=== PATIENT | female | born 1955 | race African-American/Black ===

== ENCOUNTER 2018-04-16 12:50 | Emergency (ER) | payer MEDICARE, MEDICAID ==
[~2018-04-16] VITALS: Ht 149.9 cm; Wt 79.0 kg
[2018-04-16] MEDS ORDERED: KETOROLAC 60MG/2ML VIAL IM ONE (14:45)
[2018-04-16] MEDS ORDERED: CYCLOBENZAPRINE 10MG TABLET PO ONE (14:45)
[2018-04-16] MEDS ORDERED: HYDROCODONE/ACETAMINOPHEN 5/325MG TABLET PO ONE (16:45)
[2018-04-16] MEDS ORDERED: TRAMADOL 50MG TABLET PO ONE (20:00)
[2018-04-16 20:24] VITALS: BP 162/70
== END 2018-04-16 20:26 | disposition home or self-care (01) ==
LOC: ER 14:48
DX: M48.02 Spinal stenosis, cervical region (principal); M47.896 Other spondylosis, lumbar region; M47.892 Other spondylosis, cervical region; G89.29 Other chronic pain; J45.909 Unspecified asthma, uncomplicated; F17.200 Nicotine dependence, unspecified, uncomplicated; Z98.890 Other specified postprocedural states; W01.0XXA Fall on same level from slipping, tripping and stumbling without subsequent striking against object, initial encounter; Y93.89 Activity, other specified; Y92.89 Other specified places as the place of occurrence of the external cause; Y99.8 Other external cause status
CPT/HCPCS: 72125; 72131; 96372; 99284; J1885

== ENCOUNTER 2018-12-15 01:46 | Inpatient (IN) | payer MEDICARE, OTHER ==
[2018-12-15] VITALS (12 sets, daily range): BP systolic 160–187; BP diastolic 77–135
[~2018-12-15] VITALS: Ht 167.6 cm; Wt 95.5 kg
[2018-12-15] MEDS ORDERED: METHYLPREDNISOLONE SOD SUCC 125 MG/2 ML VIAL IV STA (02:12)
[2018-12-15] MEDS ORDERED: IPRATROPIUM BROMIDE (0.02%) 0.5MG/2.5ML NEB HHN STA (02:12)
[2018-12-15] MEDS ORDERED: ONDANSETRON HCL 4MG/2ML INJ IV STA (02:12)
[2018-12-15] MEDS ORDERED: LORAZEPAM 2MG/ML CPJ IV ONE (02:15)
[2018-12-15] MEDS ORDERED: MAGNESIUM 2 G PREMIX 50 ML IV ONE (02:15)
[2018-12-15] MEDS: ALBUTEROL (0.083%) 2.5MG/3ML NEB HHN SCH ×3 (02:25→03:55)
[2018-12-15 02:45] LABS: BASOPHILS % 0.7 % (0.0-2.0); HEMATOCRIT. 38.5 % (36.0-48.0); HEMOGLOBIN. 13.1 g/dL (12.0-16.0); LYMPHOCYTES % 41.7 % (20.0-50.0); MEAN CORPUSCULAR HEMOGLOBIN 29.7 pg (28.0-32.0); MEAN CORPUSCULAR VOLUME 87.6 fL (81.0-99.0); MEAN PLATELET VOLUME 7.6 fl (7.4-10.4); MONOCYTES % 4.8 % (2.0-8.0); NEUTROPHILS % 51.8 % (40.0-76.0); PLATELET 239 x1000/uL (130-400); RED BLOOD CELL COUNT 4.39 mill/uL (4.2-5.4); RED CELL DISTRIBUTION WIDTH 15.2 % (11.6-14.6)
[2018-12-15 02:51] LABS: CHLORIDE 107 mEq/L (98-107)
[2018-12-15 03:50] LABS: BG BASE EXCESS -1.3 mmol/L (-2.0-2.0); BG BILEVEL POS AIRWAY PRESSURE 15/5; BG DEOXYHEMOGLOBIN 1.5 % (0.0-5.0); BG FRACTION INSPIRED OXYGEN 50; BG HCO3 ACT 23.9 mmol/L (22.0-26.0); BG METHEMOGLOBIN 0.3 % (0.0-1.5); BG OXYGEN SATURATION 98.5 % (92.0-98.5); BG OXYHEMOGLOBIN 97.2 % (94.0-97.0); BG PH 7.373 (7.350-7.450); BG PO2 139.9 mmHg (75.0-100.0); BG SAMPLE SITE RIGHT RADIAL; BG TOTAL HEMOGLOBIN 12.8 g/dL (12.0-18.0); BG VENT MODE MASK - BIPAP
[2018-12-15] MEDS ORDERED: KCL 20MEQ/100ML PREMIX 100 ML IV SCH (05:00)
[2018-12-15] MEDS ORDERED: IPRATROPIUM/ALBUTEROL 0.5-3(2.5)MG/3ML NEB HHN PRN (07:00)
[2018-12-15] MEDS ORDERED: HYDR-3280 PO (07:10)
[2018-12-15] MEDS ORDERED: ONDANSETRON HCL 4MG/2ML INJ IV PRN (07:15)
[2018-12-15] MEDS ORDERED: PROMETHAZINE+CODEINE 6.25-10MG/5ML PO PRN (07:30)
[2018-12-15] MEDS: METHYLPREDNISOLONE SOD SUCC 40 MG/ML VIAL IV SCH ×3 (08:17→22:03)
[2018-12-15] MEDS: NICOTINE 14MG PATCH TD SCH (08:17)
[2018-12-15] MEDS: FAMOTIDINE 20MG/2ML VIAL IV SCH ×2 (08:17→21:30)
[2018-12-15] MEDS: GUAIFENESIN/CODEINE 100-10MG/5ML UDC PO PRN ×3 (08:17→22:07)
[2018-12-15] MEDS: ENOXAPARIN 30MG/0.3ML SYR SUBCUT SCH ×2 (08:18→21:30)
[2018-12-15] MEDS: BUDESONIDE 0.5MG/2ML NEB HHN SCH ×2 (08:22→20:27)
[2018-12-15] MEDS: IPRATROPIUM/ALBUTEROL 0.5-3(2.5)MG/3ML NEB HHN SCH ×4 (08:23→20:27)
[2018-12-15] MEDS ORDERED: POTASSIUM CHLORIDE 20MEQ/PACKET PO NR (09:00)
[2018-12-15 09:17] LABS: HEMATOCRIT. 36.3 % (36.0-48.0); HEMOGLOBIN. 12.1 g/dL (12.0-16.0); MEAN CORPUSCULAR HEMOGLOBIN 29.5 pg (28.0-32.0); MEAN CORPUSCULAR VOLUME 88.1 fL (81.0-99.0); PLATELET 245 x1000/uL (130-400); RED BLOOD CELL COUNT 4.12 mill/uL (4.2-5.4); RED CELL DISTRIBUTION WIDTH 15.1 % (11.6-14.6)
[2018-12-15 09:24] LABS: CHLORIDE 108 mEq/L (98-107)
[2018-12-15 09:31] LABS: LDL CHOLESTEROL 118 mg/dL (5-100)
[2018-12-15 09:32] LABS: CREATINE KINASE 119 IU/L (26-192); HDL CHOLESTEROL 74 mg/dL (40-59)
[2018-12-15 09:35] LABS: CREATINE KINASE MB FRACTION 1.4 ng/mL (0.5-3.6)
[2018-12-15] MEDS ORDERED: CLONIDINE 0.1MG TABLET PO NR (10:15)
[2018-12-15 10:42] LABS: PLATELET ESTIMATE NORMAL
[2018-12-15] MEDS: THIAMINE HCL 100MG TABLET PO SCH (13:10)
[2018-12-15] MEDS: AZITHROMYCIN 500 MG TABLET PO SCH (13:11)
[2018-12-15] MEDS: MULTIVITAMINS,THER W-MINERALS TABLET PO SCH (13:11)
[2018-12-15] MEDS: FOLIC ACID 1MG TABLET PO SCH (13:14)
[2018-12-15 15:50] LABS: *AMPHETAMINES SCREEN URINE NEGATIVE (NEGATIVE); *BARBITURATES SCREEN URINE NEGATIVE (NEGATIVE); *BENZODIAZEPINES SCREEN URINE NEGATIVE (NEGATIVE)
[2018-12-15 15:51] LABS: *COCAINE SCREEN URINE NEGATIVE (NEGATIVE); CANNABINOID URINE SCREEN NEGATIVE (NEGATIVE); METHADONE URINE SCREEN NEGATIVE (NEGATIVE); OPIATES URINE SCREEN PRESUMTIVE POSITIVE (NEGATIVE); PHENCYCLIDINE URINE SCREEN NEGATIVE (NEGATIVE)
[2018-12-15] MEDS: HYDRALAZINE 20MG/ML VIAL IV PRN ×2 (15:52→22:03)
[2018-12-15 16:35] LABS: CREATINE KINASE 206 IU/L (26-192)
[2018-12-15 16:36] LABS: CREATINE KINASE MB FRACTION 2.4 ng/mL (0.5-3.6)
[2018-12-15] MEDS: MONTELUKAST SODIUM 10MG TABLET PO SCH (17:57)
[2018-12-15] MEDS: HYDROCODONE/ACETAMINOPHEN 5/325MG TABLET PO PRN (19:48)
[2018-12-15 23:47] LABS: CREATINE KINASE 261 IU/L (26-192)
[2018-12-15 23:48] LABS: CREATINE KINASE MB FRACTION 2.9 ng/mL (0.5-3.6)
[2018-12-16] VITALS (18 sets, daily range): BP systolic 132–179; BP diastolic 65–96
[2018-12-16] MEDS: IPRATROPIUM/ALBUTEROL 0.5-3(2.5)MG/3ML NEB HHN SCH ×5 (00:18→20:22)
[2018-12-16] MEDS: LORAZEPAM 1MG TABLET PO PRN ×2 (00:41→13:01)
[2018-12-16] MEDS: HYDRALAZINE 20MG/ML VIAL IV PRN ×2 (03:43→18:36)
[2018-12-16] MEDS: GUAIFENESIN/CODEINE 100-10MG/5ML UDC PO PRN ×2 (04:10→10:18)
[2018-12-16] MEDS: METHYLPREDNISOLONE SOD SUCC 40 MG/ML VIAL IV SCH ×3 (06:29→22:20)
[2018-12-16] MEDS: BUDESONIDE 0.5MG/2ML NEB HHN SCH ×2 (07:00→20:22)
[2018-12-16] MEDS: MULTIVITAMINS,THER W-MINERALS TABLET PO SCH (09:13)
[2018-12-16] MEDS: FAMOTIDINE 20MG/2ML VIAL IV SCH ×2 (09:13→21:54)
[2018-12-16] MEDS: FOLIC ACID 1MG TABLET PO SCH (09:13)
[2018-12-16] MEDS: ENOXAPARIN 30MG/0.3ML SYR SUBCUT SCH ×2 (09:13→21:55)
[2018-12-16] MEDS: THIAMINE HCL 100MG TABLET PO SCH (09:13)
[2018-12-16] MEDS: NICOTINE 14MG PATCH TD SCH (09:14)
[2018-12-16] MEDS: AZITHROMYCIN 500 MG TABLET PO SCH (13:01)
[2018-12-16] MEDS: HYDROCODONE/ACETAMINOPHEN 5/325MG TABLET PO PRN ×2 (13:02→17:57)
[2018-12-16] MEDS ORDERED: CARISOPRODOL 350 MG TABLET PO PRN (13:15)
[2018-12-16] MEDS: FUROSEMIDE 40MG TABLET PO SCH (14:48)
[2018-12-16 15:57] LABS: BG BASE EXCESS 1.8 mmol/L (-2.0-2.0); BG CARBOXYHEMOGLOBIN 0.3 % (0.5-1.5); BG DEOXYHEMOGLOBIN 6.9 % (0.0-5.0); BG FRACTION INSPIRED OXYGEN 21; BG HCO3 ACT 25.9 mmol/L (22.0-26.0); BG METHEMOGLOBIN 0.5 % (0.0-1.5); BG OXYHEMOGLOBIN 92.3 % (94.0-97.0); BG PCO2 38.9 mmHg (35.0-45.0); BG PH 7.442 (7.350-7.450); BG PO2 65.6 mmHg (75.0-100.0); BG SAMPLE SITE RIGHT BRACHIAL; BG TOTAL HEMOGLOBIN 12.8 g/dL (12.0-18.0); BG VENT MODE ROOM AIR
[2018-12-16] MEDS: MONTELUKAST SODIUM 10MG TABLET PO SCH (16:55)
[2018-12-16] MEDS: DOCUSATE SODIUM 100MG CAPSULE PO SCH (16:55)
[2018-12-16] MEDS: PROMETHAZINE/DEXTROMETHORPHAN 6.25-15MG/5ML BOTTLE 120ML PO PRN (22:23)
[2018-12-17] VITALS (15 sets, daily range): BP systolic 127–179; BP diastolic 72–111
[2018-12-17] MEDS: HYDRALAZINE 20MG/ML VIAL IV PRN ×2 (00:30→06:36)
[2018-12-17] MEDS: IPRATROPIUM/ALBUTEROL 0.5-3(2.5)MG/3ML NEB HHN SCH ×5 (04:19→20:00)
[2018-12-17] MEDS: METHYLPREDNISOLONE SOD SUCC 40 MG/ML VIAL IV SCH ×2 (06:36→17:22)
[2018-12-17] MEDS: HYDROCODONE/ACETAMINOPHEN 10/325MG TABLET PO PRN ×3 (06:48→19:22)
[2018-12-17] MEDS: PROMETHAZINE/DEXTROMETHORPHAN 6.25-15MG/5ML BOTTLE 120ML PO PRN ×3 (06:58→19:22)
[2018-12-17 07:54] LABS: BASOPHILS % 0.3 % (0.0-2.0); HEMATOCRIT. 38.6 % (36.0-48.0); HEMOGLOBIN. 12.8 g/dL (12.0-16.0); LYMPHOCYTES % 10.6 % (20.0-50.0); MEAN CORPUSCULAR VOLUME 87.1 fL (81.0-99.0); MONOCYTES % 3.8 % (2.0-8.0); NEUTROPHILS % 85.3 % (40.0-76.0); PLATELET 280 x1000/uL (130-400); RED BLOOD CELL COUNT 4.43 mill/uL (4.2-5.4); RED CELL DISTRIBUTION WIDTH 15.4 % (11.6-14.6)
[2018-12-17 08:04] LABS: CHLORIDE 110 mEq/L (98-107)
[2018-12-17] MEDS: FOLIC ACID 1MG TABLET PO SCH (08:41)
[2018-12-17] MEDS: FAMOTIDINE 20MG/2ML VIAL IV SCH ×2 (08:41→21:28)
[2018-12-17] MEDS: FUROSEMIDE 40MG TABLET PO SCH (08:41)
[2018-12-17] MEDS: NICOTINE 14MG PATCH TD SCH (08:41)
[2018-12-17] MEDS: MULTIVITAMINS,THER W-MINERALS TABLET PO SCH (08:41)
[2018-12-17] MEDS: DOCUSATE SODIUM 100MG CAPSULE PO SCH ×2 (08:41→17:23)
[2018-12-17] MEDS: THIAMINE HCL 100MG TABLET PO SCH (08:41)
[2018-12-17] MEDS: LORAZEPAM 1MG TABLET PO PRN ×2 (08:41→17:29)
[2018-12-17] MEDS: ENOXAPARIN 30MG/0.3ML SYR SUBCUT SCH ×2 (08:42→21:35)
[2018-12-17] MEDS: AZITHROMYCIN 500 MG TABLET PO SCH (13:05)
[2018-12-17] MEDS ORDERED: METHYLPREDNISOLONE SOD SUCC 40 MG/ML VIAL IV SCH (15:00)
[2018-12-17] MEDS: BUDESONIDE 0.5MG/2ML NEB HHN SCH ×2 (16:10→19:50)
[2018-12-17] MEDS: MONTELUKAST SODIUM 10MG TABLET PO SCH (17:22)
[2018-12-17] MEDS ORDERED: ZOLPIDEM TARTRATE 5MG TABLET PO PRN (21:00)
[2018-12-18] VITALS (9 sets, daily range): BP systolic 130–183; BP diastolic 80–125
[2018-12-18] MEDS: IPRATROPIUM/ALBUTEROL 0.5-3(2.5)MG/3ML NEB HHN SCH ×4 (04:00→12:11)
[2018-12-18] MEDS: PROMETHAZINE/DEXTROMETHORPHAN 6.25-15MG/5ML BOTTLE 120ML PO PRN ×2 (04:09→08:52)
[2018-12-18] MEDS: HYDRALAZINE 20MG/ML VIAL IV PRN (04:14)
[2018-12-18] MEDS: HYDROCODONE/ACETAMINOPHEN 10/325MG TABLET PO PRN ×2 (05:02→11:23)
[2018-12-18 06:59] LABS: BASOPHILS % 0.4 % (0.0-2.0); HEMOGLOBIN. 12.8 g/dL (12.0-16.0); LYMPHOCYTES % 17.9 % (20.0-50.0); MEAN CORPUSCULAR HEMOGLOBIN 29.3 pg (28.0-32.0); NEUTROPHILS % 75.7 % (40.0-76.0); PLATELET 271 x1000/uL (130-400); RED BLOOD CELL COUNT 4.37 mill/uL (4.2-5.4); RED CELL DISTRIBUTION WIDTH 15.2 % (11.6-14.6)
[2018-12-18 07:12] LABS: CHLORIDE 107 mEq/L (98-107)
[2018-12-18] MEDS: BUDESONIDE 0.5MG/2ML NEB HHN SCH (08:50)
[2018-12-18] MEDS: NICOTINE 14MG PATCH TD SCH (08:53)
[2018-12-18] MEDS: ENOXAPARIN 30MG/0.3ML SYR SUBCUT SCH (08:53)
[2018-12-18] MEDS: DOCUSATE SODIUM 100MG CAPSULE PO SCH (08:54)
[2018-12-18] MEDS: METHYLPREDNISOLONE SOD SUCC 40 MG/ML VIAL IV SCH (08:54)
[2018-12-18] MEDS: FAMOTIDINE 20MG/2ML VIAL IV SCH (08:54)
[2018-12-18] MEDS: FOLIC ACID 1MG TABLET PO SCH (08:54)
[2018-12-18] MEDS: MULTIVITAMINS,THER W-MINERALS TABLET PO SCH (08:55)
[2018-12-18] MEDS: THIAMINE HCL 100MG TABLET PO SCH (08:55)
[2018-12-18] MEDS: FUROSEMIDE 40MG TABLET PO SCH (08:55)
[2018-12-18] MEDS: AZITHROMYCIN 500 MG TABLET PO SCH (12:13)
[2018-12-19] MEDS ORDERED: PREDNISONE 20MG TABLET PO SCH (09:00)
== END 2018-12-18 16:50 | disposition home or self-care (01) | DRG 189 ==
LOC: ER 01:46 → 5EST 03:57 → EDBEDREQTM 03:59 → EDBEDREQ 03:59 → EDBEDREQSVC 03:59 → ENRESERV 04:39 → 5EST 12-16 07:44
PROVIDERS: ADMIT Internal Medicine; ATTEND Internal Medicine
PROC: 5A09357 Assistance with Respiratory Ventilation, Less than 24 Consecutive Hours, Continuous Positive Airway Pressure (ICD-10-PCS; principal; 2018-12-15)
DX: J96.01 Acute respiratory failure with hypoxia (principal); J44.1 Chronic obstructive pulmonary disease with (acute) exacerbation; J45.901 Unspecified asthma with (acute) exacerbation; E87.6 Hypokalemia; R73.9 Hyperglycemia, unspecified; F10.20 Alcohol dependence, uncomplicated; I10 Essential (primary) hypertension; E78.5 Hyperlipidemia, unspecified; M16.12 Unilateral primary osteoarthritis, left hip; M54.30 Sciatica, unspecified side; F17.210 Nicotine dependence, cigarettes, uncomplicated; Z95.810 Presence of automatic (implantable) cardiac defibrillator; Z98.891 History of uterine scar from previous surgery
CPT/HCPCS: 36415; 36600; 71045; 80048; 80061; 80305; 82375; 82550; 82553; 82805; 83605; 83735; 83880; 84132; 84443; 84484; 93005; 93970; 94640; 94660; 96365; 96367; 96375; 99291; J0360; J1650; J2060; J2405; J2920; J2930; J3475; J3480; J3490; J7050; J7611; J7620; J7626

== ENCOUNTER 2019-04-05 01:13 | Emergency (ER) | payer MEDICARE, MEDICAID ==
[~2019-04-05] VITALS: Ht 152.4 cm; Wt 82.0 kg
[2019-04-05] MEDS ORDERED: KETOROLAC 60MG/2ML VIAL IM STA (01:28)
[2019-04-05 02:04] LABS: BASOPHILS % 0.8 % (0.0-2.0); EOSINOPHILS % 0.8 % (0.0-5.0); HEMATOCRIT. 38.9 % (36.0-48.0); HEMOGLOBIN. 12.8 g/dL (12.0-16.0); LYMPHOCYTES % 17.9 % (20.0-50.0); MEAN CORPUSCULAR HEMOGLOBIN 28.3 pg (28.0-32.0); MEAN CORPUSCULAR VOLUME 85.7 fL (81.0-99.0); MEAN PLATELET VOLUME 7.8 fl (7.4-10.4); MONOCYTES % 4.8 % (2.0-8.0); NEUTROPHILS % 75.7 % (40.0-76.0); PLATELET 275 x1000/uL (130-400); RED BLOOD CELL COUNT 4.54 mill/uL (4.2-5.4); RED CELL DISTRIBUTION WIDTH 14.4 % (11.6-14.6)
[2019-04-05 02:07] LABS: CHLORIDE 110 mEq/L (98-107)
[2019-04-05] MEDS ORDERED: POTASSIUM CHLORIDE 20MEQ TABLET SR PO SCH (02:45)
[2019-04-05 06:00] VITALS: BP 151/78
== END 2019-04-05 06:59 | disposition home or self-care (01) ==
LOC: ER 01:13
DX: E87.6 Hypokalemia (principal); F41.9 Anxiety disorder, unspecified; R53.1 Weakness; J45.909 Unspecified asthma, uncomplicated; F32.9 Major depressive disorder, single episode, unspecified; I10 Essential (primary) hypertension; Z98.890 Other specified postprocedural states; F17.200 Nicotine dependence, unspecified, uncomplicated
CPT/HCPCS: 36415; 71045; 80053; 83880; 84484; 85025; 93005; 96372; 99284; J1885

== ENCOUNTER 2020-06-30 13:43 | Emergency (ER) | payer MEDICARE, OTHER ==
[~2020-06-30] VITALS: Ht 165.1 cm; Wt 114.0 kg
[~2020-06-30 13:43] MED LIST: ONDANSETRON HCL 4MG/2ML INJ IV NR
[2020-06-30 13:44] VITALS: BP 150/82
[2020-06-30] MEDS ORDERED: LACTATED RINGERS 1,000 ML IV SCH (23:45)
== END 2020-06-30 22:14 | disposition left against medical advice (07) ==
LOC: ER 14:09
DX: R11.2 Nausea with vomiting, unspecified (principal); I10 Essential (primary) hypertension; Z86.59 Personal history of other mental and behavioral disorders; J45.909 Unspecified asthma, uncomplicated
CPT/HCPCS: 99283

== ENCOUNTER 2021-02-05 11:10 | Emergency (ER) | payer OTHER ==
[~2021-02-05] VITALS: Ht 165.1 cm; Wt 127.0 kg
[2021-02-05] MEDS ORDERED: LORAZEPAM 1MG TABLET PO ONE (12:00)
[2021-02-05 12:23] LABS: BASOPHILS % 1.1 % (0.0-2.0); EOSINOPHILS % 0.9 % (0.0-5.0); HEMATOCRIT. 41.4 % (36.0-48.0); HEMOGLOBIN. 13.8 g/dL (12.0-16.0); LYMPHOCYTES % 23.6 % (20.0-50.0); MEAN CORPUSCULAR HEMOGLOBIN 28.7 pg (28.0-32.0); MEAN CORPUSCULAR VOLUME 86.1 fL (81.0-99.0); MEAN PLATELET VOLUME 7.8 fl (7.4-10.4); MONOCYTES % 4.5 % (2.0-8.0); NEUTROPHILS % 69.9 % (40.0-76.0); PLATELET 299 x1000/uL (130-400); RED BLOOD CELL COUNT 4.81 mill/uL (4.2-5.4); RED CELL DISTRIBUTION WIDTH 16.1 % (11.6-14.6)
[2021-02-05 12:27] LABS: CHLORIDE 107 mEq/L (98-107)
[2021-02-05] MEDS ORDERED: ACETAMINOPHEN 325MG TABLET PO ONE (13:15)
[2021-02-05] MEDS ORDERED: KETOROLAC 60MG/2ML VIAL IM ONE (13:30)
[2021-02-05 14:30] VITALS: BP 150/80
== END 2021-02-05 16:00 | disposition home or self-care (01) ==
LOC: ER 11:10
DX: F41.0 Panic disorder [episodic paroxysmal anxiety] (principal); I10 Essential (primary) hypertension; G89.29 Other chronic pain; M54.5 Low back pain; J45.909 Unspecified asthma, uncomplicated; Z63.79 Other stressful life events affecting family and household
CPT/HCPCS: 36415; 80053; 85025; 93005; 96372; 99284; J1885

== ENCOUNTER 2021-05-05 11:02 | Emergency (ER) | payer OTHER, MEDICAID ==
[~2021-05-05] VITALS: Ht 152.4 cm; Wt 80.0 kg
[~2021-05-05 11:02] MED LIST changes: -ONDANSETRON HCL 4MG/2ML INJ IV NR; +OXYC1TAB12 MT
[2021-05-05] MEDS ORDERED: NAPROXEN 375MG TABLET PO ONE (11:45)
[2021-05-05] MEDS ORDERED: NAPR-679 MT (15:46)
[2021-05-05 16:28] VITALS: BP 148/91
== END 2021-05-05 16:33 | disposition home or self-care (01) ==
LOC: ER 11:02
DX: M79.605 Pain in left leg (principal); M25.512 Pain in left shoulder; M25.511 Pain in right shoulder; J45.909 Unspecified asthma, uncomplicated; J44.1 Chronic obstructive pulmonary disease with (acute) exacerbation; Z98.890 Other specified postprocedural states
CPT/HCPCS: 73030; 93005; 93970; 99285

== ENCOUNTER 2021-05-20 22:58 | Inpatient (IN) | payer OTHER, MEDICAID ==
[~2021-05-20] VITALS: Ht 152.4 cm; Wt 85.0 kg
[~2021-05-20 22:58] MED LIST changes: +NAPR-679 MT
[2021-05-20] MEDS ORDERED: ONDANSETRON HCL 4MG/2ML INJ IV STA (23:26)
[2021-05-20] MEDS ORDERED: MORPHINE SULFATE 4 MG/ML CPJ (NOT FOR IM USE) IV STA (23:26)
[2021-05-20] MEDS ORDERED: MAGNESIUM/ALUMINUM HYDROXIDE/SIMETHICONE 30ML UDC PO STA (23:26)
[2021-05-20] MEDS ORDERED: SODIUM CHLORIDE 0.9% 1,000 ML IV ONE (23:30)
[2021-05-21 00:16] LABS: BASOPHILS % 0.8 % (0.0-2.0); EOSINOPHILS % 0.1 % (0.0-5.0); HEMATOCRIT. 38.7 % (36.0-48.0); HEMOGLOBIN. 12.9 g/dL (12.0-16.0); LYMPHOCYTES % 17.1 % (20.0-50.0); MEAN CORPUSCULAR HEMOGLOBIN 28.7 pg (28.0-32.0); MEAN CORPUSCULAR VOLUME 86.1 fL (81.0-99.0); MEAN PLATELET VOLUME 7.5 fl (7.4-10.4); MONOCYTES % 4.5 % (2.0-8.0); NEUTROPHILS % 77.5 % (40.0-76.0); PLATELET 330 x1000/uL (130-400); RED CELL DISTRIBUTION WIDTH 15.3 % (11.6-14.6)
[2021-05-21 00:21] LABS: CHLORIDE 109 mEq/L (98-107)
[2021-05-21 00:28] LABS: PHOSPHORUS 2.5 mg/dL (2.5-4.9)
[2021-05-21] MEDS ORDERED: POTASSIUM CHLORIDE 20MEQ TABLET SR PO ONE (01:30)
[2021-05-21] MEDS ORDERED: MAGNESIUM 2 G PREMIX 50 ML IV ONE (01:30)
[2021-05-21] MEDS ORDERED: KCL 10MEQ/50ML PREMIX 50 ML IV ONE ×2 (01:30)
[2021-05-21] MEDS ORDERED: ONDANSETRON HCL 4MG/2ML INJ IV ONE (03:15)
[2021-05-21] MEDS ORDERED: MORPHINE SULFATE 2 MG/ML CPJ (NOT FOR IM USE) IV ONE (05:15)
[2021-05-21 05:41] LABS: CHLORIDE 115 mEq/L (98-107)
[2021-05-21 08:30] VITALS: BP 96/34
[2021-05-21 08:55] VITALS: BP 96/34
[2021-05-21] MEDS ORDERED: PANTOPRAZOLE SODIUM 40 MG/VIAL IV SCH (10:00)
[2021-05-21] MEDS ORDERED: NALOXONE HCL 0.4MG/ML VIAL IV PRN (10:00)
[2021-05-21] MEDS: ONDANSETRON HCL 4MG/2ML INJ IV PRN ×2 (10:36→16:32)
[2021-05-21] MEDS: MORPHINE SULFATE 2 MG/ML CPJ (NOT FOR IM USE) IV PRN ×3 (10:37→22:34)
[2021-05-21 12:20] VITALS: BP 164/68
[2021-05-21] MEDS: DEXT 5%/0.45% NACL KCL 20MEQ/L 1,000 ML IV SCH ×2 (12:26→23:45)
[2021-05-21] MEDS: PANTOPRAZOLE SODIUM 40 MG/VIAL IV SCH (12:26)
[2021-05-21] MEDS ORDERED: POTASSIUM CHLORIDE INJ 40 MEQ in DEXT 5% WATER 500 ML IV ONE (15:30)
[2021-05-21 16:23] VITALS: BP 132/66
[2021-05-21] MEDS: KCL 20MEQ/100ML PREMIX 100 ML IV SCH ×2 (16:32→18:30)
[2021-05-21] MEDS ORDERED: POTASSIUM CHLORIDE 20MEQ TABLET SR PO NR (18:58)
[2021-05-21 20:00] VITALS: BP 128/70
[2021-05-21 23:40] VITALS: BP 129/70
[2021-05-22] MEDS: ONDANSETRON HCL 4MG/2ML INJ IV PRN ×3 (01:28→17:40)
[2021-05-22 03:39] VITALS: BP 120/68
[2021-05-22] MEDS: MORPHINE SULFATE 2 MG/ML CPJ (NOT FOR IM USE) IV PRN ×3 (04:37→17:40)
[2021-05-22 08:00] VITALS: BP 159/77
[2021-05-22] MEDS: PANTOPRAZOLE SODIUM 40 MG/VIAL IV SCH (09:12)
[2021-05-22] MEDS: APIXABAN 5 MG TABLET PO SCH ×2 (10:56→17:40)
[2021-05-22 12:00] VITALS: BP 129/72
[2021-05-22 13:48] LABS: CHLORIDE 111 mEq/L (98-107)
[2021-05-22 16:00] VITALS: BP 148/85
[2021-05-22 20:00] VITALS: BP 144/75
[2021-05-23] VITALS: BP 151/73
[2021-05-23] MEDS: MORPHINE SULFATE 2 MG/ML CPJ (NOT FOR IM USE) IV PRN ×2 (02:50→10:17)
[2021-05-23] MEDS: ONDANSETRON HCL 4MG/2ML INJ IV PRN (02:50)
[2021-05-23] MEDS: DEXT 5%/0.45% NACL KCL 20MEQ/L 1,000 ML IV SCH ×2 (02:51→16:20)
[2021-05-23 04:00] VITALS: BP 158/77
[2021-05-23 08:00] VITALS: BP 165/75
[2021-05-23] MEDS: APIXABAN 5 MG TABLET PO SCH (09:08)
[2021-05-23] MEDS: PANTOPRAZOLE SODIUM 40 MG/VIAL IV SCH (09:11)
[2021-05-23 11:52] LABS: BASOPHILS % 0.8 % (0.0-2.0); EOSINOPHILS % 2.3 % (0.0-5.0); HEMATOCRIT. 39.2 % (36.0-48.0); HEMOGLOBIN. 12.6 g/dL (12.0-16.0); LYMPHOCYTES % 15.4 % (20.0-50.0); MEAN CORPUSCULAR HEMOGLOBIN 28.5 pg (28.0-32.0); MEAN PLATELET VOLUME 7.8 fl (7.4-10.4); NEUTROPHILS % 76.5 % (40.0-76.0); PLATELET 301 x1000/uL (130-400); RED BLOOD CELL COUNT 4.41 mill/uL (4.2-5.4)
[2021-05-23 12:00] LABS: CHLORIDE 110 mEq/L (98-107)
[2021-05-23 15:28] VITALS: BP_SYST 148; BP_SYST 165; BP_DIAS 75; BP_DIAS 82
[2021-05-23 16:00] VITALS: BP 148/82
== END 2021-05-23 17:22 | disposition home or self-care (01) | DRG 392 ==
LOC: ER 22:58 → 6WST 05-21 06:02 → ENRESERV 05-21 07:48
PROVIDERS: ADMIT Internal Medicine; ATTEND Internal Medicine
DX: K29.20 Alcoholic gastritis without bleeding (principal); F32.A Depression, unspecified; F41.9 Anxiety disorder, unspecified; J44.9 Chronic obstructive pulmonary disease, unspecified; F10.10 Alcohol abuse, uncomplicated; E87.6 Hypokalemia; Y90.9 Presence of alcohol in blood, level not specified; I10 Essential (primary) hypertension; F17.210 Nicotine dependence, cigarettes, uncomplicated; Z86.718 Personal history of other venous thrombosis and embolism; Z79.891 Long term (current) use of opiate analgesic; Z79.899 Other long term (current) drug therapy; Z91.14 Patient's other noncompliance with medication regimen; Z95.810 Presence of automatic (implantable) cardiac defibrillator; Z79.01 Long term (current) use of anticoagulants
CPT/HCPCS: 36415; 74176; 80048; 80053; 80076; 80320; 82150; 82248; 83605; 83735; 84100; 84132; 84484; 85025; 93005; 93306; 99285; C9113; J2270; J2405; J3475; J3480; J7030; G0480

== ENCOUNTER 2021-07-02 10:21 | Emergency (ER) | payer OTHER, MEDICAID ==
[~2021-07-02] VITALS: Ht 162.6 cm; Wt 78.0 kg
[~2021-07-02 10:21] MED LIST changes: -NAPR-679 MT
[2021-07-02 10:35] VITALS: BP 130/80
[2021-07-02] MEDS ORDERED: METH-653 MT (12:24)
[2021-07-02] MEDS ORDERED: IBUP-2028 MT (12:24)
[2021-07-02] MEDS ORDERED: LIDO1ADH82 TOP (12:24)
== END 2021-07-02 13:04 | disposition home or self-care (01) ==
LOC: ER 10:29
DX: M79.605 Pain in left leg (principal); J44.9 Chronic obstructive pulmonary disease, unspecified
CPT/HCPCS: 93971; 99284

== ENCOUNTER 2021-09-16 18:43 | Inpatient (IN) | payer OTHER, MEDICAID ==
[~2021-09-16] VITALS: Ht 154.9 cm; Wt 75.9 kg
[~2021-09-16 18:43] MED LIST changes: +IBUP-2028 MT; +LIDO1ADH82 TOP; +METH-653 MT
[2021-09-16 20:21] LABS: BASOPHILS % 0.7 % (0.0-2.0); EOSINOPHILS % 0.5 % (0.0-5.0); HEMATOCRIT. 41.9 % (36.0-48.0); HEMOGLOBIN. 14.1 g/dL (12.0-16.0); LYMPHOCYTES % 26.4 % (20.0-50.0); MEAN CORPUSCULAR HEMOGLOBIN 28.3 pg (28.0-32.0); MEAN PLATELET VOLUME 7.2 fl (7.4-10.4); MONOCYTES % 5.1 % (2.0-8.0); NEUTROPHILS % 67.3 % (40.0-76.0); PLATELET 256 x1000/uL (130-400); RED BLOOD CELL COUNT 4.99 mill/uL (4.2-5.4); RED CELL DISTRIBUTION WIDTH 16.4 % (11.6-14.6)
[2021-09-16] MEDS ORDERED: DICYCLOMINE 10 MG/5 ML ORAL SYR PO STA (20:25)
[2021-09-16 20:27] LABS: CHLORIDE 108 mEq/L (98-107)
[2021-09-16] MEDS ORDERED: SODIUM CHLORIDE 0.9% 1,000 ML IV ONE (20:30)
[2021-09-16] MEDS ORDERED: POTASSIUM CHLORIDE 20MEQ/PACKET PO ONE ×2 (21:00)
[2021-09-16] MEDS ORDERED: MAGNESIUM 2 G PREMIX 50 ML IV ONE (21:00)
[2021-09-17 06:20] LABS: CLARITY URINE CLEAR (CLEAR); COLOR URINE ORANGE (YELLOW); KETONES URINE TRACE (NEGATIVE); LEUKOCYTE ESTERASE URINE TRACE (NEGATIVE); NITRITE URINE NEGATIVE (NEGATIVE); OCCULT BLOOD URINE NEGATIVE (NEGATIVE); PH URINE 5.5 (4.5-8.0); PROTEIN URINE NEGATIVE (NEGATIVE); SPECIFIC GRAVITY URINE 1.019 (1.005-1.030)
[2021-09-17 08:59] VITALS: BP 119/85
[2021-09-17 09:00] VITALS: BP 119/85
[2021-09-17] MEDS ORDERED: SODIUM CHLORIDE 0.9% 1,000 ML IV SCH (11:15)
[2021-09-17] MEDS ORDERED: ACETAMINOPHEN 325MG TABLET PO PRN (11:15)
[2021-09-17] MEDS ORDERED: NALOXONE HCL 0.4MG/ML VIAL IV PRN (11:15)
[2021-09-17] MEDS ORDERED: ONDANSETRON HCL 4MG/2ML INJ IV PRN (11:15)
[2021-09-17] MEDS ORDERED: HYDR-4001 PO (11:28)
[2021-09-17 12:00] VITALS: BP 163/79
[2021-09-17] MEDS: HYDROCODONE/ACETAMINOPHEN 5/325MG TABLET PO PRN ×2 (12:55→17:13)
[2021-09-17] MEDS: PANTOPRAZOLE SODIUM 40 MG/VIAL IV SCH (12:55)
[2021-09-17 13:08] LABS: CHLORIDE 115 mEq/L (98-107)
[2021-09-17 16:00] VITALS: BP 120/75
[2021-09-17 20:00] VITALS: BP 121/60
[2021-09-18] VITALS: BP 133/72
[2021-09-18] MEDS: HYDROCODONE/ACETAMINOPHEN 5/325MG TABLET PO PRN ×3 (01:10→09:59)
[2021-09-18 04:00] VITALS: BP 133/60
[2021-09-18 07:57] LABS: EOSINOPHILS % 2.4 % (0.0-5.0); HEMOGLOBIN. 11.8 g/dL (12.0-16.0); LYMPHOCYTES % 32.7 % (20.0-50.0); MEAN CORPUSCULAR HEMOGLOBIN 28.5 pg (28.0-32.0); MEAN CORPUSCULAR VOLUME 84.9 fL (81.0-99.0); MEAN PLATELET VOLUME 7.6 fl (7.4-10.4); MONOCYTES % 5.2 % (2.0-8.0); NEUTROPHILS % 58.7 % (40.0-76.0); PLATELET 221 x1000/uL (130-400); RED BLOOD CELL COUNT 4.13 mill/uL (4.2-5.4); RED CELL DISTRIBUTION WIDTH 16.6 % (11.6-14.6)
[2021-09-18 08:00] VITALS: BP 131/80
[2021-09-18 08:16] LABS: CHLORIDE 114 mEq/L (98-107)
[2021-09-18] MEDS: PANTOPRAZOLE SODIUM 40 MG/VIAL IV SCH (09:58)
[2021-09-18 11:44] VITALS: BP 131/80
== END 2021-09-18 12:35 | disposition home or self-care (01) | DRG 392 ==
LOC: ER 18:43 → 8WST 09-17 02:42
PROVIDERS: ADMIT Internal Medicine; ATTEND Internal Medicine
DX: K52.9 Noninfective gastroenteritis and colitis, unspecified (principal); E87.6 Hypokalemia; J44.9 Chronic obstructive pulmonary disease, unspecified; M19.90 Unspecified osteoarthritis, unspecified site; Z98.891 History of uterine scar from previous surgery; Z95.810 Presence of automatic (implantable) cardiac defibrillator; Z79.899 Other long term (current) drug therapy; Z86.718 Personal history of other venous thrombosis and embolism; I11.0 Hypertensive heart disease with heart failure; I50.9 Heart failure, unspecified
CPT/HCPCS: 36415; 74176; 80048; 80053; 81003; 83735; 85025; 93005; 99285; C9113; J2405; J3475; J7030

== ENCOUNTER 2021-12-10 01:17 | Emergency (ER) | payer OTHER, MEDICAID ==
[~2021-12-10] VITALS: Ht 152.4 cm; Wt 79.0 kg
[~2021-12-10 01:17] MED LIST changes: +HYDR-4001 PO
[2021-12-10] MEDS ORDERED: IBUP-2028 PO (05:51)
[2021-12-10] MEDS ORDERED: OXYCODONE HCL 5MG TABLET PO ONE (06:00)
[2021-12-10] MEDS ORDERED: IBUPROFEN 800MG TABLET PO ONE (06:00)
[2021-12-10 09:29] LABS: CLARITY URINE TURBID (CLEAR); COLOR URINE DARK YELLOW (YELLOW); KETONES URINE TRACE (NEGATIVE); LEUKOCYTE ESTERASE URINE 1+ (NEGATIVE); NITRITE URINE NEGATIVE (NEGATIVE); OCCULT BLOOD URINE TRACE (NEGATIVE); PROTEIN URINE 1+ (NEGATIVE)
[2021-12-10] MEDS ORDERED: NITR100C PO (09:59)
[2021-12-10 10:22] VITALS: BP 145/76
== END 2021-12-10 10:23 | disposition home or self-care (01) ==
LOC: ER 01:17
DX: M79.18 Myalgia, other site (principal); N39.0 Urinary tract infection, site not specified; I10 Essential (primary) hypertension; M47.894 Other spondylosis, thoracic region
CPT/HCPCS: 72070; 81003; 99284

== ENCOUNTER 2022-01-10 19:39 | Emergency (ER) | payer OTHER, MEDICAID ==
[~2022-01-10] VITALS: Ht 157.5 cm; Wt 73.0 kg
[~2022-01-10 19:39] MED LIST changes: +IBUP-2028 PO; +NITR100C PO
[2022-01-10 22:45] VITALS: BP 116/39
[2022-01-10] MEDS ORDERED: HYDROCODONE/ACETAMINOPHEN 5/325MG TABLET PO ONE (22:45)
[2022-01-10] MEDS ORDERED: LIDOCAINE 5% PATCH TOP SCH (23:45)
[2022-01-11] MEDS ORDERED: LIDO700A15 TP ×2 (00:52)
[2022-01-11] MEDS ORDERED: T3 PO (00:52)
[2022-02-09] MEDS ORDERED: IBUP-2028 PO (19:09)
[2022-02-09] MEDS ORDERED: FURO40TA5 PO (19:09)
[2022-02-09] MEDS ORDERED: POTA-79 PO (19:09)
[2022-02-09] MEDS ORDERED: GABA-533 PO (19:10)
[2022-02-09] MEDS ORDERED: FAMO20TA8 PO (19:11)
[2022-02-09] MEDS ORDERED: ONDA4TAB50 PO (19:11)
[2022-02-09] MEDS ORDERED: ZOLP5TAB8 PO (19:12)
[2022-02-09] MEDS ORDERED: LOSA50TA41 PO (19:12)
[2022-02-09] MEDS ORDERED: DOCU-150 PO (19:13)
[2022-02-09] MEDS ORDERED: ALBU2.5V13 IH (19:16)
[2022-02-16] MEDS ORDERED: HYDR-4009 PO (14:14)
[2022-02-16] MEDS ORDERED: APIX5TAB PO (14:14)
== END 2022-01-11 01:31 | disposition home or self-care (01) ==
LOC: ER 19:39
DX: M79.642 Pain in left hand (principal); M25.532 Pain in left wrist; F17.210 Nicotine dependence, cigarettes, uncomplicated; Z71.6 Tobacco abuse counseling; Z86.718 Personal history of other venous thrombosis and embolism; Z79.01 Long term (current) use of anticoagulants
CPT/HCPCS: 73110; 93971; 99284; 99406

== ENCOUNTER 2022-03-02 11:32 | Emergency (ER) | payer OTHER, MEDICAID ==
[~2022-03-02] VITALS: Ht 152.4 cm; Wt 73.0 kg
[~2022-03-02 11:32] MED LIST changes: +ALBU2.5V13 IH; +APIX5TAB PO; +DOCU-150 PO; +FAMO20TA8 PO; +FURO40TA5 PO; +GABA-533 PO; -HYDR-4001 PO; +HYDR-4009 PO; -IBUP-2028 MT; -LIDO1ADH82 TOP; +LOSA50TA41 PO; -METH-653 MT; -NITR100C PO; +ONDA4TAB50 PO; -OXYC1TAB12 MT; +POTA-79 PO; +T3 PO; +ZOLP5TAB8 PO
[2022-03-02] MEDS ORDERED: HYDROCODONE/ACETAMINOPHEN 5/325MG TABLET PO ONE (11:45)
[2022-03-02] MEDS ORDERED: ONDANSETRON 4MG ODT PO ONE (12:15)
[2022-03-02] MEDS ORDERED: MORPHINE SULFATE 10 MG/ML CPJ IM ONE (12:15)
[2022-03-02] MEDS ORDERED: HYDR-4001 MT (15:58)
[2022-03-02 16:44] VITALS: BP 130/62
== END 2022-03-02 16:49 | disposition home or self-care (01) ==
LOC: ER 12:30
DX: R60.9 Edema, unspecified (principal); M79.605 Pain in left leg; I10 Essential (primary) hypertension; J45.909 Unspecified asthma, uncomplicated; Z79.899 Other long term (current) drug therapy
CPT/HCPCS: 93971; 96372; 99284; J2270; Q0162

== ENCOUNTER 2022-12-14 08:54 | Emergency (ER) | payer BC, MEDICAID ==
[~2022-12-14] VITALS: Ht 162.6 cm; Wt 78.0 kg
[~2022-12-14 08:54] MED LIST changes: +HYDR-4001 MT; +POTA-354 PO; -POTA-79 PO
[2022-12-14 09:09] VITALS: O2SAT 99
[2022-12-14] MEDS ORDERED: HYDROCODONE/ACETAMINOPHEN 5/325MG TABLET PO ONE (10:45)
[2022-12-14] MEDS ORDERED: FUROSEMIDE 40MG TABLET PO ONE (10:45)
[2022-12-14] MEDS ORDERED: FAMO20TA8 PO (12:32)
[2022-12-14] MEDS ORDERED: GABA-533 PO (12:32)
[2022-12-14] MEDS ORDERED: HYDR-4001 MT ×3 (12:32→15:31)
[2022-12-14] MEDS ORDERED: FURO40TA5 PO (12:36)
[2022-12-14] MEDS ORDERED: LOSA50TA41 PO (12:56)
[2022-12-14] MEDS ORDERED: FURO40TA5 MT (13:30)
[2022-12-14] MEDS ORDERED: FAMO20TA8 MT (13:30)
[2022-12-14] MEDS ORDERED: LOSA50TA41 MT (13:30)
[2022-12-14] MEDS ORDERED: GABA-533 MT (13:30)
[2022-12-14 15:05] VITALS: BP 178/98; PULSE 78; RESP 18; TEMP 98.7
== END 2022-12-14 15:36 | disposition home or self-care (01) ==
LOC: ER 08:54
DX: M79.672 Pain in left foot (principal); I10 Essential (primary) hypertension; J44.1 Chronic obstructive pulmonary disease with (acute) exacerbation; Z00.00 Encounter for general adult medical examination without abnormal findings; Z76.0 Encounter for issue of repeat prescription; Z79.899 Other long term (current) drug therapy
CPT/HCPCS: 93970; 99284

== ENCOUNTER 2023-03-20 13:00 | Emergency (ER) | payer BC, MEDICAID ==
[~2023-03-20] VITALS: Ht 165.1 cm; Wt 73.0 kg
[~2023-03-20 13:00] MED LIST changes: +FAMO20TA8 MT; -FAMO20TA8 PO; +FURO40TA5 MT; -FURO40TA5 PO; -GABA-533 PO; +GABA-534 MT; -HYDR-4001 MT; -HYDR-4009 PO; -IBUP-2028 PO; +LOSA50TA41 MT; -LOSA50TA41 PO; -T3 PO; -ZOLP5TAB8 PO
[2023-03-20 13:15] VITALS: O2SAT 96
[2023-03-20] MEDS ORDERED: ACETAMINOPHEN 325MG TABLET PO ONE (13:15)
[2023-03-20] MEDS ORDERED: IBUPROFEN 600MG TABLET PO ONE (14:15)
[2023-03-20] MEDS ORDERED: IBUP-2029 MT (15:50)
[2023-03-20 15:54] VITALS: BP 133/68; PULSE 63; RESP 14; TEMP 98.5
== END 2023-03-20 16:33 | disposition home or self-care (01) ==
LOC: ER 13:08
DX: M79.672 Pain in left foot (principal); M19.90 Unspecified osteoarthritis, unspecified site; J44.9 Chronic obstructive pulmonary disease, unspecified; I10 Essential (primary) hypertension
CPT/HCPCS: 73630; 93970; 99284